=== PATIENT | female | born 1990 | race Caucasian/White ===

== ENCOUNTER 2017-02-26 14:32 | Emergency (ER) | payer OTHER ==
--- NOTE | 2017-02-26 14:47 | ED Physician Documentation ---
Abdominal Pain - HISTORIAN Historian: patient - HPI Chief Complaint: Abdominal Pain Onset: hours (8 hours) Timing: still present Context: denies: out of country travel, bad food Severity: moderate Quality: aching, sharp Associated Symptoms: nausea, vomiting (2 times tody), diarrhea, bloody stools ( due to anal irritation, mild). 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 Since that time she has been intermittent pain in her abd, patient states realted to appendix swelling. Gets the pain every day. Gets worse about ever other month. Takes Ibuprofen which seems to help some. Has been told by primary care physician to go to ED when severe pain occurs. HAs had periappendix abcess drained. When the severe pain occurs patient usually gets pain meds, IV fluids. Last CT scan was about one year ago. Patient denies possiblitiy of .) - ROS CONST: no problems GI/: bloody stools. denies: constipation, black stools, bloody urine, dark urine CVS/RESP: none NEURO/PSYCH: anxiety - SOCIAL HX Smoking History: non-smoker Alcohol Use: occasionally Drug Use: none - FAMILY HX Family History: denies: kidney stones, aortic aneurysm - PAST HX Past History: other (anxiety. , insomnia) Ischemic Bowel Risk Factors: none Other History: none Surgeries/Procedures: other (T&A, periappedigeal abscess.) Home Medications: Ambulatory Orders Medication Instructions Recorded Haloperidol [Haldol] 5 mg PO BID 02/26/17 LORazepam [Ativan] 1 mg PO 1200 02/26/17 LORazepam [Ativan] 1 mg PO HS 02/26/17 Lorazepam [Ativan] 2 mg PO AM 02/26/17 Suvorexant [Belsomra] 15 mg PO HS 02/26/17 Trazodone HCl 75 mg PO HS 02/26/17 Allergies/Adverse Reactions: Allergies Allergy/AdvReac Type Severity Reaction Status Date / Time dicyclomine Allergy Verified 02/26/17 14:41 ketorolac tromethamine Allergy Verified 02/26/17 14:41 [From Toradol] morphine Allergy Verified 02/26/17 14:41 sulfamethoxazole Allergy Verified 02/26/17 14:41 [From Bactrim] trimethoprim [From Bactrim] Allergy Verified 02/26/17 14:41 vancomycin Allergy Verified 02/26/17 14:41 - VITAL SIGNS Vital Signs: Vital Signs Temp Pulse Resp BP Pulse Ox 98.2 F 99 H 16 148/88 98 02/26/17 16:36 02/26/17 16:36 02/26/17 16:36 02/26/17 16:36 02/26/17 16:36 - REVIEWED ASSESSMENTS Nursing Assessment Reviewed: Yes Vitals Reviewed: Yes Progress - Progress Progress: 15:48 Patient is still complaining of pain, worse with movement but she is rocking back and forth. Abd exam is unchanged. 16:14 Doing better, no further nausea noted. Pain is improved. Patient is wanting to go home. ED Results Lab/Radiology - Lab Results Lab Results: Lab Results 02/26/17 02/26/17 15:20 15:20 WBC 11.00 K/ul K/ul (4.00-12.00) RBC 4.46 M/ul M/ul (3.90-5.20) Hgb 12.4 g/dL g/dL (12.0-16.0) Hct 35.1 % % (34.5-46.5) MCV 78.9 fl L fl (80.0-100.0) MCH 27.9 pg L pg (28.0-34.0) MCHC 35.4 g/dL g/dL (30.0-36.0) RDW 14.5 % H % (11.3-14.3) Plt Count 281 K/mm3 K/mm3 (130-400) Neut % (Auto) 63.5 % % (39.0-79.0) Lymph % (Auto) 27.6 % % (16.0-50.0) [place] % (Auto) 4.4 % % (0.0-11.0) Eos % (Auto) 2.4 % % (0.0-6.8) Baso % (Auto) 0.6 (0.0-1.5) Neut # (Auto) 7.0 # k/uL # k/uL (1.4-7.7) Lymph # (Auto) 3.0 # k/uL # k/uL (0.6-4.0) [place] # (Auto) 0.5 # k/uL # k/uL (0.0-0.9) Eos # (Auto) 0.3 # k/uL # k/uL (0.0-0.6) Baso # (Auto) 0.1 # k/uL # k/uL (0.0-0.5) Reactive Lymphs % 1.5 % % (0.0-5.0) Reactive Lymphs # 0.2 # k/uL # k/uL (0.0-0.8) Sodium 140 mmol/L mmol/L (136-145) Potassium 3.6 mmol/L mmol/L (3.5-5.0) Chloride 107 mmol/L mmol/L (98-110) Carbon Dioxide 26 mmol/L mmol/L (20-32) BUN 5 mg/dL L mg/dL (10-26) Creatinine 0.6 mg/dL mg/dL (0.4-1.5) Estimated Creat Clear 249 Est GFR ( Amer) > 60 (60 - ) Est GFR (Non-Af Amer) > 60 (60 - ) Glucose 152 mg/dL H mg/dL (70-99) Calcium 9.8 mg/dL mg/dL (8.5-10.5) Total Bilirubin 0.2 mg/dL mg/dL (0.2-1.2) AST 48 U/L H U/L (0-41) ALT 61 U/L H U/L (0-45) Alkaline Phosphatase 104 U/L U/L (46-116) Total Protein 8.0 g/dL g/dL (6.0-8.5) Albumin 4.7 g/dL g/dL (3.0-5.5) Amylase 35 U/L U/L (20-104) - Radiology Radiology Impressions: Patient Study Name: TRUNG KNOWLES Date: Feb 26, 2017 3:30:28 PM CDT Modality Type: CR Gender: F Description: ABDOMEN : 89 Institution: [facility] Physician: NABILA TALAVERA Abdomen KUB Date of Exam: February 26, 2017. History: KUB, ABDOMINAL PAIN X3 DAYS, RT SIDE WORSE THAN LEFT, HX OF GALLBLADDER REMOVAL (Hx) Findings: The visualized bowel gas pattern is normal. There is gas in the descending colon which is nondilated. No dilated small bowel is identified. Surgical clips in the right upper quadrant are consistent with cholecystectomy. No abnormal abdominal or pelvic calcifications are identified. The osseous structures are normal for age. There is no evidence of free air. Impression: Normal abdominal bowel gas pattern. - Orders Orders: ED Orders Category Date Time Status Place IV Lock 1T Care 02/26/17 15:02 Active KUB [ABDOMEN 1 VIEW] [RAD] Stat Exams 02/26/17 Taken AMYLASE Routine Lab 02/26/17 15:20 Completed CBC/PLATELET/DIFF Routine Lab 02/26/17 15:20 Completed CMP Routine Lab 02/26/17 15:20 Completed DRUG SCREEN URINE MEDICAL ONLY Routine Lab 02/26/17 Ordered URINALYSIS Routine Lab 02/26/17 Ordered URINE HCG Routine Lab 02/26/17 Ordered 0.9 % Sodium Chloride [Normal Saline] 1,000 ml Med 02/26/17 15:30 Discontinued IV .Q1H 0.9 % Sodium Chloride [Normal Saline] 1,000 ml Med 02/26/17 15:22 Discontinued IV .STK-MED HYDROmorphone HCL/PF [Dilaudid] Med 02/26/17 15:56 Discontinued 1 mg IVP NOW ONE fentaNYL CITRATE/PF [Duragesic] Med 02/26/17 15:02 Discontinued 50 mcg IVP NOW ONE Abdominal Pain Physical Exam - Physical Exam General Appearance: alert, moderate distress, anxious EENT: ENT inspection normal, pharynx normal NECK: normal inspection, thyroid normal, supple. No: lymphadenopathy, stiff neck RESPIRATORY: no resp distress, chest non-tender, breath sounds normal. No: wheezes, rales, rhonchi CVS: heart sounds normal, equal pulses, no murmur, tachycardia ABDOMEN: soft, normal bowel sounds, no distension, tenderness (mild diffuse). No: rebound, distended, guarding BACK: normal inspection, no CVA tenderness SKIN: warm/dry, normal color EXTREMITIES: non-tender NEURO: oriented X3, mood/affect nml, cognition normal Vital Signs: Vital Signs Temp Pulse Resp BP Pulse Ox 98.2 F 99 H 16 148/88 98 02/26/17 16:36 02/26/17 16:36 02/26/17 16:36 02/26/17 16:36 02/26/17 16:36 Discharge Clincal Impression: Abdominal pain Qualifiers: Abdominal location: generalized Qualified Code(s): R10.84 - Generalized abdominal pain Referrals: Primary Doctor,No [Primary Care Provider] - 2 Days Additional Instructions: As we discussed you need to contact your primary care provider about trying to find out what is the cause of your pain and what the plan should be for your pain that you have. Home and rest tonight. Clear liquids for 12 hours. Watch for fever or chills. If you have any further problems to see your primary care provider or return to the ED. Home Medications: Ambulatory Orders Haloperidol [Haldol] 5 mg PO BID 02/26/17 LORazepam [Ativan] 1 mg PO 1200 02/26/17 LORazepam [Ativan] 1 mg PO HS 02/26/17 Lorazepam [Ativan] 2 mg PO AM 02/26/17 Suvorexant [Belsomra] 15 mg PO HS 02/26/17 Trazodone HCl 75 mg PO HS 02/26/17 Condition: Stable Disposition: 01 HOME, SELF-CARE Decision to Admit: NO Date of Decison to Admit: 02/26/17 Decision Time: 16:20
[2017-02-26] MEDS ORDERED: 0.9 % SODIUM CHLORIDE 1,000 ML IV ONE (15:22)
[2017-02-26] MEDS: fentaNYL CITRATE/PF 100 MCG/ 2ML AMP IVP ONE (15:25)
[2017-02-26] MEDS: 0.9 % SODIUM CHLORIDE 1,000 ML IV SCH (15:26)
[2017-02-26 15:27] LABS: BASOPHILS % 0.6 (0.0-1.5); EOSINOPHILS % 2.4 % (0.0-6.8); MEAN CORPUSCULAR HEMOGLOBIN 27.9 pg (28.0-34.0); MEAN CORPUSCULAR VOLUME 78.9 fl (80.0-100.0); MONOCYTES % 4.4 % (0.0-11.0)
[2017-02-26 15:44] LABS: eGFR (African) > 60; eGFR (Non-African) > 60
[2017-02-26] MEDS: HYDROmorphone HCL/PF 1 MG/ML DISP.SYRIN IVP ONE (16:08)
[2017-02-26 16:38] VITALS: BP 148/88
--- NOTE | 2017-02-26 20:52 | Diagnostic Imaging Report ---
NABILA TALAVERA [facility] [address] [facility] [address] [address] Report Submission Date: Feb 26, 2017 3:51:22 PM CDT Patient Study Name: TRUNG KNOWLES Date: Feb 26, 2017 3:30:28 PM CDT Modality Type: CR Gender: F Description: ABDOMEN : 89 Institution: [facility] Physician: NABILA TALAVERA Abdomen KUB Date of Exam: February 26, 2017. History: KUB, ABDOMINAL PAIN X3 DAYS, RT SIDE WORSE THAN LEFT, HX OF GALLBLADDER REMOVAL (Hx) Findings: The visualized bowel gas pattern is normal. There is gas in the descending colon which is nondilated. No dilated small bowel is identified. Surgical clips in the right upper quadrant are consistent with cholecystectomy. No abnormal abdominal or pelvic calcifications are identified. The osseous structures are normal for age. There is no evidence of free air. Impression: Normal abdominal bowel gas pattern. Electronically signed on Feb 26, 2017 3:51:22 PM CDT by: Tayler THOMAS
[2017-02-28 09:25] LABS: APPEARANCE,URINE CLEAR (CLEAR); COLOR,URINE YELLOW (YELLOW); OCCULT BLOOD,URINE TRACE-LYSED (NEGATIVE); PH URINE 6.5 (5.0 - 8.0); URINE HCG NEGATIVE (NEGATIVE); UROBILINOGEN URINE 0.2 Eu (0.2-1.0)
[2017-02-28 09:26] LABS: AMPHETAMINE NEGATIVE ng/mL (<1000); BARBITURATES NEGATIVE ng/mL (<300); CANNABINOIDS NEGATIVE ng/mL (< 50); COCAINE NEGATIVE ng/mL (<150); METHAMPHETAMINE NEGATIVE ng/mL (<1000); METHYLENEDIOXYMETHAMPHETAMINE NEGATIVE ng/mL (<500); MORPHINE NEGATIVE ng/mL (<300)
== END 2017-02-26 16:36 | disposition home or self-care (01) ==
LOC: ED 14:32
DX: R10.84 Generalized abdominal pain (principal)
CPT/HCPCS: 74000; 80053; 82150; 85025; J1170; J3010; J7030; 80377; 81002; 81025; 96361; 96374; 96375; 99283; G0481; S1016